=== PATIENT | male | born 1945 | race Caucasian/White ===

== ENCOUNTER 2024-02-18 07:06 | Emergency (ER) | payer OTHER, SELFPAY ==
[2024-02-18 07:07] VITALS: BP 193/70; PULSE 82; RESP 16; TEMP 36.4; O2SAT 98; BMI 37.8
--- NOTE | 2024-02-18 07:18 | EKG12_ITS ---
Test Reason : CP Blood Pressure : / mmHG Vent. Rate : 083 BPM Atrial Rate : 083 BPM P-R Int : 176 ms QRS Dur : 084 ms QT Int : 374 ms P-R-T Axes : 031 -01 043 degrees QTc Int : 439 ms Normal sinus rhythm Low voltage QRS Borderline ECG Confirmed by LAW MONTILLA, JESI ([id number]), video news editor BEVERLY TURPIN ([id number]) on 02/19/2024 9:44:43 AM Referred By: Jose Confirmed By:JESI FOY MD
--- NOTE | 2024-02-18 07:18 | ED.VIS.CHEST ---
HPI History of Present Illness Chief Complaint: Chest Pain Informant: patient and family Narrative Narrative: 79-year-old [place] patient presenting with chest discomfort at about 7 AM that woke him up at 2 AM and has been there ever since. It is substernal, feels sharp, dull, difficult for him to describe it nonpleuritic. He has had a cough for couple weeks occasionally coughing up yellow sputum and occasionally wheezing, has been wheezing worse this morning, he says his shortness of breath coincides with the wheezing and all of that is worse when he coughs not necessarily when he walks including the chest discomfort which is nonexertional. When he went to bed he did not have the chest discomfort. He does not have a history of heart problems or COPD/asthma that he knows of. He has had leg swelling for the last couple months which is new for him, he [facility] but has not been put on any specific medications for this yet, but they cut his amlodipine in half from 10 to 5mg daily. Already takes medications for blood pressure, hyperlipidemia, thyroid, and he has a history of prostate cancer. [facility] Medical History (Updated 02/18/24 @ 10:[address] Mark Garcia MD) Hyperlipidemia Hypertension Hypothyroidism Prostate cancer Home Medications albuterol sulfate 90 mcg/actuation aerosol inhaler (Ventolin HFA) 1 - 2 puff inhalation Q4H PRN PRN Wheezing ##1 02/18/24 [Rx Last Taken Unknown] alprazolam 0.25 mg tablet 0.25 mg PO DAILY PRN anxiety 02/18/24 [History Last Taken Unknown] amlodipine 10 mg tablet 5 mg PO DAILY 02/18/24 [History Last Taken 02/17/24] benazepril 10 mg tablet 10 mg PO DAILY 02/18/24 [History Last Taken 02/17/24] calcium citrate 200 mg (950 mg) tablet 200 mg PO BID 02/18/24 [History Last Taken 02/17/24] finasteride 5 mg tablet 5 mg PO DAILY 02/18/24 [History Last Taken 02/17/24] furosemide 40 mg tablet (Lasix) 40 mg PO DAILY #5 tabs 02/18/24 [Rx Last Taken Unknown] levofloxacin 500 mg tablet 500 mg PO DAILY #7 tabs 02/18/24 [Rx Last Taken Unknown] levothyroxine 125 mcg tablet (Euthyrox) 125 mcg PO DAILY 02/18/24 [History Last Taken 02/18/24] pravastatin 80 mg tablet 80 mg PO QHS 02/18/24 [History Last Taken 02/17/24] tamsulosin 0.4 mg capsule (Flomax) 0.4 mg PO DAILY 02/18/24 [History Last Taken 02/17/24] Allergy/AdvReac Type Severity Reaction Status Date / Time No Known Allergies Allergy Verified 02/18/24 07:07 Social History (Updated 02/18/24 @ 07:[address] Mark Garcia MD) Smoking Status: Never smoker ROS ROS ED Constitutional Constitutional ED: Denies chills or fever(s) Eyes Eyes: Denies change in vision or diplopia ENT ENT ED: Denies rhinorrhea or sore throat Cardiovascular Cardiovascular: Reports chest pain and leg edema; Denies orthopnea, palpitations, radiating jaw, neck or arm pain or syncope Respiratory/Chest Respiratory/Chest: Reports cough, dyspnea, sputum and wheezing; Denies hemoptysis or orthopnea Gastrointestinal Gastrointestinal: Denies abdominal pain, diarrhea, nausea or vomiting Genitourinary Genitourinary ED: Denies dysuria or hematuria Musculoskeletal Musculoskeletal: Denies back pain or neck pain Integumentary Denies abscess or rash Neurologic Neurologic: Denies headache(s), paresthesias or weakness Psychiatric Psychiatric: Denies anxiety or suicidal thoughts EXAM Physical Exam Const Vital Signs: 02/18/24 07:07 02/18/24 07:16 02/18/24 07:26 Temperature 97.6 F L Temperature Source Temporal Pulse Rate 82 Respiratory Rate 16 Respiratory Effort Short of Breath Blood Pressure 193/70 H Blood Pressure Mean 111 Pulse Ox 98 98 Oxygen Delivery Method Room Air Room Air 02/18/24 07:26 02/18/24 08:09 02/18/24 09:00 Temperature 97.2 F L Temperature Source Oral Pulse Rate 79 79 80 Respiratory Rate 18 16 18 Respiratory Effort Blood Pressure 153/69 H 154/80 H Blood Pressure Mean 97 104 Pulse Ox 94 93 Oxygen Delivery Method Room Air Room Air 02/18/24 10:01 Temperature 98.1 F Temperature Source Temporal Pulse Rate 76 Respiratory Rate 15 Respiratory Effort Blood Pressure 155/74 H Blood Pressure Mean 101 Pulse Ox 95 Oxygen Delivery Method Room Air Positive well nourished, well developed and obese General Appearance ED: well developed and NAD Nutritional Appearance: obese HEENT Reports moist mucous membranes normocephalic and atraumatic Eyes PERRL and EOMs intact bilaterally Neck full ROM, supple and no JVD Chest Wall inspection of chest normal and palpation of chest normal Resp normal respiratory effort Resp Narrative: Diffuse expiratory wheezing and prolonged expiratory phase no respiratory distress. Speaking in full sentences. Able to ambulate to and from the bathroom just prior to me entering the room for examination without respiratory distress or difficulty. Cardio regular rate, regular rhythm and no murmurs GI non-tender and non-distended Auscultation: normoactive bowel sounds Palpation: soft Back/Spine no CVA tenderness General Back: other FROM Extremity normal to inspection General Extremety ED: Yes edema; Negative for pulses abnormal or tenderness General Extremity: edema bilateral lower extremity Details: moderate; Negative for pulses abnormal Neuro oriented x3, CN's II-XII intact bilaterally and no sensory deficits noted Sensorium / Orientation: awake and alert Motor Exam: strength 5/5 throughout Psych mental status grossly normal Skin no rashes or lesions noted and no wounds Heart Score History: Moderately Suspicious ECG: Normal Age: >/= 65 years Risk Factors: 1 or 2 Risk Factors Troponin: </= Normal Limit Score: 4 MDM MDM MDM Narrative Medical decision making narrative: Patient was given an albuterol treatment while we ran workup, his wheezing and chest discomfort resolved as a result and he felt much better. Given the swelling around a BNP which is well within normal limits, his initial troponin measurement is 6 and his second troponin measurement 2-3 hours later is 6, for a delta of 0. His EKG is normal, 2 view chest x-ray my interpretation normal radiology in agreement, no pneumonia. He states he has been sick for 2-3 weeks with this cough. While it is likely that this is a viral wheezy bronchitis, he is 79 and I think reasonable to prescribe a broad-spectrum antibiotic to cover for atypicals. Also given prescription for albuterol inhaler and 5 days of once daily Lasix for the swelling in his legs. [facility], he may need to continue having his medications changed such as discontinuation of his amlodipine but since his blood pressure is elevated he may need a replacement medication. All questions answered for multiple family members in the room and they are comfortable with that overall plan, but at this time I think it is reasonable to discharge him home having had ruled out acute coronary syndrome today. Lab Data Attestation: I reviewed the patient's lab results. Labs: Laboratory Results - last 24 hr 02/18/24 02/18/24 07:17 09:45 WBC 9.2 RBC 4.32 L Hgb 12.5 L Hct 38.5 L MCV 89.1 MCH 28.9 MCHC 32.5 RDW Std Deviation 44.1 H RDW Coeff of Dahlia 13.5 Plt Count 324 MPV 9.8 Immature Gran % (Auto) 1.000 H Neut % (Auto) 64.7 Lymph % (Auto) 23.0 [place]ala % (Auto) 9.6 Eos % (Auto) 1.3 Baso % (Auto) 0.4 Absolute Neuts (auto) 6.0 Absolute Lymphs (auto) 2.12 Nucleated RBC % 0 Sodium 136 Potassium 3.7 Chloride 104 Carbon Dioxide 27.0 Anion Gap 5 BUN 17 Creatinine 0.76 Estim Creat Clear Calc 82.51 Est GFR (MDRD) Af Amer 128 Est GFR (MDRD) Non-Af 106 BUN/Creatinine Ratio 22.4 H Glucose 116 H Calcium 9.0 Troponin I High Sens 6 6 B-Natriuretic Peptide 41.9 Radiography Diagnostic Testing: Clinical Impression(s) from Imaging Studies Chest X-Ray 02/18/24 07:52 IMPRESSION: No acute cardiopulmonary disease. Electronically Signed: Yonathan Skelton MD at 9:05 EDT Reading Location ID and State: [address] [place] [address] Tel , Service support , Rhythm Strip Rhythm Strip: Sinus Rhythm Rate: 83 Ectopy: None EKG Initial EKG: Attestation: I personally reviewed and interpreted this EKG as follows: Interpretation: Sinus Rhythm and No Acute Injury Pattern Comments: nml EKG Prior EKG tracings: not available for review Prior: No Prior Discharge Plan Triage Chief Complaint: Chest Pain ED Provider: Mark Garcia Dx/Rx/DC Orders Clinical Impression: Bilateral leg edema, Acute wheezy bronchitis, Chest pain, unspecified Instructions: Acute Bronchitis, ED Peripheral Edema, Unilateral Prescriptions: New albuterol sulfate [Ventolin HFA] 90 mcg/actuation HFA aerosol inhaler 1 - 2 puff inhalation Q4H PRN PRN (Reason: Wheezing) Qty: 1 0RF furosemide [Lasix] 40 mg tablet 40 mg PO DAILY Qty: 5 0RF levofloxacin 500 mg tablet 500 mg PO DAILY Qty: 7 0RF No Action tamsulosin [Flomax] 0.4 mg capsule 0.4 mg PO DAILY levothyroxine [Euthyrox] 125 mcg tablet 125 mcg PO DAILY finasteride 5 mg tablet 5 mg PO DAILY pravastatin 80 mg tablet 80 mg PO QHS benazepril 10 mg tablet 10 mg PO DAILY calcium citrate 200 mg (950 mg) tablet 200 mg PO BID amlodipine 10 mg tablet 5 mg PO DAILY alprazolam 0.25 mg tablet 0.25 mg PO DAILY PRN (Reason: anxiety) Rx Instructions: and [address] or radiation [facility]Primary [facility] Provider] - (This coming week call for appointment if you do not already have 1) Disposition Disposition: Home, Self Care
[2024-02-18 07:24] LABS: Absolute Lymphocyte Count 2.12 X10^3/uL (0.83-4.51); Basophil# 0.04 X10^3/uL; Basophil% 0.4 % (0-1); Eosinophil# 0.12 X10^3/uL; Eosinophils% 1.3 % (0-5); Hematocrit 38.5 % (40-54); Hemoglobin 12.5 g/dL (13.0-16.5); Lymphocyte # 2.12 X10^3/ul (0.83-4.51); Mean Corp Hgb Conc 32.5 g/dL (32-36); Mean Corpuscular Hgb 28.9 pg (27.0-32.0); Mean Corpuscular Volume 89.1 fL (80-94); Mean Platelet Vol. 9.8 fl (6.2-12.0); Monocyte# 0.88 X10^3/uL; Monocyte% 9.6 % (0-10); NRBC Flagged by Analyzer 0 % (0-5); Neutrophil # 5.95 X10^3/uL (2.7-7.7); Neutrophil % 64.7 % (47-70); Platelet Count 324 K/mm3 (150-450); RBC Distribution Width CV 13.5 % (11.6-14.6); RBC Distribution Width SD 44.1 fl (35.1-43.9); Red Blood Count 4.32 M/mm3 (4.6-6.2); White Blood Count 9.2 K/mm3 (4.4-11.0)
[2024-02-18] MEDS: Albuterol 2.5 MG/3 ML VIAL.NEB. INHALATION (07:25)
[2024-02-18 07:26] VITALS: PULSE 79; RESP 18; O2SAT 98
[2024-02-18 07:47] LABS: Anion Gap 5 (5-15); BUN 17 mg/dL (7-18); BUN/Creat Ratio 22.4 RATIO (10-20); Chloride 104 mmol/L (98-107); Creatinine, Serum 0.76 mg/dL (0.70-1.30); EST Glomerular Filtration Rate 106 mL/min (>60); Est Glom Filt Rate - Afr Amer 128 mL/min (>60); Estimated Creatinine Clearance 82.51 ml/min; Glucose 116 mg/dL (74-106); Potassium 3.7 mmol/L (3.5-5.1); Sodium Level 136 mmol/L (136-145); Troponin-I HS (w/2H Reflex) 6 pg/mL (3.0-78.0)
--- NOTE | 2024-02-18 07:52 | RAD_ITS ---
EXAM: XR CHEST, 2 VIEWS CLINICAL INDICATION: chest pain, cough, sob TECHNIQUE: Frontal and lateral views of the chest. COMPARISON: No relevant prior studies available. FINDINGS: LUNGS AND PLEURAL SPACES: Normal. No consolidation or edema. No pneumothorax. No effusion. HEART: Normal heart size. MEDIASTINUM: No mediastinal or hilar mass. BONES/JOINTS: No acute abnormality. RAD/Chest PA and Lateral IMPRESSION: No acute cardiopulmonary disease. Electronically Signed: Yonathan Skelton MD at 9:05 EDT ,
[2024-02-18 07:57] LABS: BNP,B-Type NATRIURETIC PEPTIDE 41.9 pg/mL (0-100)
[2024-02-18 08:09] VITALS: BP 153/69; PULSE 79; RESP 16; TEMP 36.2; O2SAT 94
[2024-02-18 09:00] VITALS: BP 154/80; PULSE 80; RESP 18; O2SAT 93
[2024-02-18 09:21] LABS: Reflex Troponin-HS? (from REC) Y
[2024-02-18 10:01] VITALS: BP 155/74; PULSE 76; RESP 15; TEMP 36.7; O2SAT 95
[2024-02-18 10:12] LABS: Troponin-I HS 6 pg/mL (3.0-78.0)
[2024-02-18 10:31] VITALS: BP 112/90; PULSE 72; RESP 20; TEMP 36.1; O2SAT 98
== END 2024-02-18 10:32 | disposition home or self-care (01) ==
PROVIDERS: Emergency Provider Emergency Medicine; Visit Provider Emergency Medicine
DX: R07.9 Chest pain, unspecified (principal); J20.9 Acute bronchitis, unspecified; E78.5 Hyperlipidemia, unspecified; R60.0 Localized edema; I10 Essential (primary) hypertension; Z79.899 Other long term (current) drug therapy; Z85.46 Personal history of malignant neoplasm of prostate; E03.9 Hypothyroidism, unspecified; R06.2 Wheezing
CPT/HCPCS: 71046; 80048; 83880; 84484; 85025; 93005; 94640; 99284; A4216

== ENCOUNTER 2024-11-22 11:01 | Emergency (ER) | payer OTHER, SELFPAY ==
[2024-11-22 11:02] VITALS: BP 148/74; PULSE 64; RESP 18; TEMP 36.8; O2SAT 97; BMI 36.0
--- NOTE | 2024-11-22 11:33 | CT_ITS ---
PROCEDURE: ABDOMEN/PELVIS WITH CONTRAST REASON FOR EXAM: Left lower quadrant pain. TECHNIQUE: CT of the abdomen and pelvis with contrast, with sagittal and coronal reconstructed images. COMPARISON: None. FINDINGS: Lung bases: Clear Liver: Diffuse fatty infiltration of the liver is noted. No focal process is seen.. Gallbladder: Unremarkable. Spleen: Unremarkable. Pancreas: Unremarkable. Adrenals: Unremarkable. Kidneys: Unremarkable. No renal calculus is seen. No evidence of hydronephrosis. Bladder: Incompletely filled urinary bladder shows no abnormality.. Reproductive Organs: Metallic prostate seeds are seen.. Bowel: Moderate sigmoid diverticulosis is noted, mild at the adjacent descending colon. No specific findings of diverticulitis are noted. No mesenteric fat edema, free or loculated fluid collection, or pneumoperitoneum is seen. Appendix: Normal. Lymph nodes: No suspicious lymph node enlargement. Vasculature: [id number] aortic calcifications are seen; no evidence of abdominal aortic aneurysm. Mild coronary artery calcification is seen. Peritoneum / Retroperitoneum: No ascites. No free air. Bones: No acute process is seen. Prominent degenerative changes of the spine and sacroiliac joints are noted. Bilateral hip joint degenerative changes are also seen.. CT/Abdomen/Pelvis WITH Contrast IMPRESSION: 1. Moderate sigmoid diverticulosis. No specific findings of diverticulitis are noted. 2. No acute process is appreciated. One or more dose reduction techniques were used (e.g., Automated exposure contr ol, adjustment of the mA and/or kV according to patient size, use of iterative reconstruction technique). Reading Location: [id number]
--- NOTE | 2024-11-22 11:34 | ED.VIS.GI ---
HPI HPI - GI History of Present Illness Chief Complaint: Abd Pain Narrative Narrative: 79-year-old male past medical history of previous diverticulitis 20 to 30 years ago presents with left lower quadrant abdominal pain that has had over the last 3 weeks. He states it was more intermittent at first, but has become more constant. 3 in the area where his belt takes into his abdominal wall. He denies any fevers or chills, no nausea or vomiting, no diarrhea. Last normal bowel movement was today/this morning. He denies any dysuria or hematuria. Pain is somewhat exacerbated by movement and sitting up, relieved by nothing. He states that [facility] not have [facility] again. [facility] Medical History Prostate cancer Hypothyroidism Hyperlipidemia Hypertension Home Medications ?Medication ?Instructions ?Recorded ?Last Taken ?Type albuterol sulfate 90 mcg/actuation 1 - 2 puff inhalation Q4H PRN PRN 02/18/24 Unknown Rx aerosol inhaler (Ventolin HFA) Wheezing ##1 alprazolam 0.25 mg tablet 0.25 mg PO DAILY PRN anxiety 02/18/24 Unknown History amlodipine 10 mg tablet 5 mg PO DAILY 02/18/24 02/17/24 History benazepril 10 mg tablet 10 mg PO DAILY 02/18/24 02/17/24 History calcium citrate 200 mg PO BID 02/18/24 02/17/24 History finasteride 5 mg tablet 5 mg PO DAILY 02/18/24 02/17/24 History furosemide 40 mg tablet (Lasix) 40 mg PO DAILY #5 tabs 02/18/24 Unknown Rx levofloxacin 500 mg tablet 500 mg PO DAILY #7 tabs 02/18/24 Unknown Rx levothyroxine 125 mcg tablet 125 mcg PO DAILY 02/18/24 02/18/24 History (Euthyrox) pravastatin 80 mg tablet 80 mg PO QHS 02/18/24 02/17/24 History tamsulosin 0.4 mg capsule (Flomax) 0.4 mg PO DAILY 02/18/24 02/17/24 History Allergy/AdvReac Type Severity Reaction Status Date / Time No Known Allergies Allergy Verified 11/22/24 11:02 Social History Smoking Status: Never smoker ROS ROS ED ROS Narrative Constitutional: No fever, no chills. Cardiovascular: No chest pain. No palpitations. No pedal edema. Respiratory: No cough, no shortness of breath. Abdominal: Left lower quadrant abdominal pain x 3 weeks. No nausea. No vomiting. No diarrhea. Genitourinary: No dysuria. No hematuria. Musculoskeletal: No myalgias. No arthralgias. Neurologic: No headaches. No dizziness. No lightheadedness. Skin: No rash. No change in color. EXAM Physical Exam Narrative Exam Narrative: Afebrile. Vital signs noted. Nontoxic-appearing. HEENT exam grossly unremarkable with PERRL, EOMI. Neck soft and supple. No meningismus. Cardiovascular examination regular rate and rhythm. Lungs clear to auscultation bilaterally. Abdomen soft with mild tenderness palpation left lower quadrant without guarding or rebound. Positive bowel sounds. Positive pain with half sit up. Const Vital Signs: 11/22/24 11:02 11/22/24 13:01 Temperature 98.2 F 98.9 F Temperature Source Oral Oral Pulse Rate 64 68 Respiratory Rate 18 18 Blood Pressure 148/74 H 134/78 H Blood Pressure Mean 98 96 Pulse Ox 97 98 Oxygen Delivery Method Room Air Room Air MDM MDM MDM Narrative Medical decision making narrative: Differential diagnosis includes but not limited to diverticulitis versus abdominal wall strain/muscular pain versus bowel obstruction. I have very low suspicion for bowel obstruction based on the history and physical because it does not support this. Additionally, I have low suspicion for diverticulitis as well based on his history and physical. Comprehensive workup was pursued. I reviewed his laboratory work and he has normal white count of 9.6, hemoglobin normal at 14.1, platelet count normal at 328. Sodium slightly low 135 which I think is nonspecific, normal potassium 3.9, BUN of 14 and creatinine 0.82. LFTs are grossly unremarkable. Urinalysis is negative for infection. I do not feel antibiotics are indicated. I reviewed the radiology report of the CT of the abdomen pelvis which shows diverticulosis but no evidence of acute diverticulitis. At this point in time, repeat examination shows him resting comfortably. I do feel that he probably has more abdominal wall pain versus strain. I feel he can be discharged to follow-up with his primary care provider. Return instructions to the emergency department were reviewed. Disposition is discharged home in stable condition. History & Record Review Discussion w/independent historian: Patient Lab Data Attestation: I reviewed the patient's lab results. Labs: Laboratory Results - last 24 hr 11/22/24 11/22/24 11:15 12:00 WBC 9.6 RBC 4.78 Hgb 14.1 Hct 41.9 MCV 87.7 MCH 29.5 MCHC 33.7 RDW Std Deviation 45.1 H RDW Coeff of Dahlia 14.0 Plt Count 328 MPV 10.4 Immature Gran % (Auto) 0.800 Neut % (Auto) 65.7 Lymph % (Auto) 22.8 [place] % (Auto) 9.2 Eos % (Auto) 1.1 Baso % (Auto) 0.4 Absolute Neuts (auto) 6.3 Absolute Lymphs (auto) 2.19 Nucleated RBC % 0 Sodium 135 L Potassium 3.9 Chloride 100 Carbon Dioxide 30.0 Anion Gap 5 BUN 14 Creatinine 0.82 Estim Creat Clear Calc 78.56 Est GFR (MDRD) Af Amer 116 Est GFR (MDRD) Non-Af 96 BUN/Creatinine Ratio 17.0 Glucose 105 Calcium 9.0 Total Bilirubin 0.40 AST 19 ALT 33 Alkaline Phosphatase 81 Total Protein 7.9 Albumin 4.0 Globulin 3.9 Albumin/Globulin Ratio 1.0 Urine Color Yellow Urine Clarity Clear Urine pH 7.0 Ur Specific [place] 1.005 Urine Protein Negative Urine Glucose (UA) Normal Urine Ketones Negative Urine Occult Blood Negative Urine Nitrite Negative Urine Bilirubin Negative Urine Urobilinogen Normal Ur Leukocyte Esterase Negative Urine RBC 0 SEEN Urine WBC 0 SEEN Ur Squamous Epith Cells 0 SEEN Urine Bacteria 0 SEEN Urine Mucus 0 SEEN Radiography Diagnostic Testing: Clinical Impression(s) from Imaging Studies Abdomen/Pelvis CT 11/22/24 11:33 IMPRESSION: 1. Moderate sigmoid diverticulosis. No specific findings of diverticulitis are noted. 2. No acute process is appreciated. One or more dose reduction techniques were used (e.g., Automated exposure control, adjustment of the mA and/or kV according to patient size, use of iterative reconstruction technique). Reading Location: [address] Discharge Plan Triage Chief Complaint: Abd Pain ED Provider: Shreyas Martinez Dx/Rx/DC Orders Clinical Impression: Abdominal pain, acute, left lower quadrant, Abdominal wall pain Instructions: ED Abdominal Pain Unkn Cause Male... Prescriptions: No Action tamsulosin [Flomax] 0.4 mg capsule 0.4 mg PO DAILY levothyroxine [Euthyrox] 125 mcg tablet 125 mcg PO DAILY finasteride 5 mg tablet 5 mg PO DAILY pravastatin 80 mg tablet 80 mg PO QHS benazepril 10 mg tablet 10 mg PO DAILY calcium citrate 200 mg (950 mg) tablet 200 mg PO BID amlodipine 10 mg tablet 5 mg PO DAILY alprazolam 0.25 mg tablet 0.25 mg PO DAILY PRN (Reason: anxiety) Rx Instructions: and [address] or radiation albuterol sulfate [Ventolin HFA] 90 mcg/actuation HFA aerosol inhaler 1 - 2 puff inhalation Q4H PRN PRN (Reason: Wheezing) Qty: 1 0RF furosemide [Lasix] 40 mg tablet 40 mg PO DAILY Qty: 5 0RF levofloxacin 500 mg tablet 500 mg PO DAILY Qty: 7 0RF [facility] Provider[facility] - 1 Week if not improving Activity Restrictions/Additional Instructions: Follow-up with your primary care provider. Return with fever, increased pain, new or worsening symptoms. Print Language: Frisian Disposition Disposition: Home, Self Care
[2024-11-22 11:48] LABS: Absolute Lymphocyte Count 2.19 X10^3/uL (0.83-4.51); Absolute Neutrophil Count 6.3 X10^3/uL (2.0-7.7); Basophil# 0.04 X10^3/uL; Basophil% 0.4 % (0-1); Eosinophil# 0.11 X10^3/uL; Eosinophils% 1.1 % (0-5); Hematocrit 41.9 % (40-54); Hemoglobin 14.1 g/dL (13.0-16.5); Lymphocyte # 2.19 X10^3/ul (0.83-4.51); Lymphocyte % 22.8 % (19-41); Mean Corp Hgb Conc 33.7 g/dL (32-36); Mean Corpuscular Hgb 29.5 pg (27.0-32.0); Mean Corpuscular Volume 87.7 fL (80-94); Mean Platelet Vol. 10.4 fl (6.2-12.0); Monocyte# 0.88 X10^3/uL; Monocyte% 9.2 % (0-10); NRBC Flagged by Analyzer 0 % (0-5); Neutrophil # 6.29 X10^3/uL (2.7-7.7); Neutrophil % 65.7 % (47-70); Platelet Count 328 K/mm3 (150-450); RBC Distribution Width SD 45.1 fl (35.1-43.9); Red Blood Count 4.78 M/mm3 (4.6-6.2); White Blood Count 9.6 K/mm3 (4.4-11.0)
[2024-11-22 12:11] LABS: Bacteria 0 SEEN /hpf (None Seen); Mucous, Urine 0 SEEN /hpf (<or=2+); Red Blood Cells-Urine 0 SEEN /hpf (0-5); Squamous Epithelial Cells - UA 0 SEEN /hpf (0-5); White Blood Cells 0 SEEN /hpf (0-5)
[2024-11-22 12:13] LABS: Color, Urine Yellow (Yellow); Glucose, Dipstick Normal (Normal); Ketone-Dipstick Negative (Negative); Leukocyte Esterase-Dipstick Negative /ul (Negative); Nitrite-Dipstick Negative (Negative); Occult Blood-Urine Negative /ul (Negative); Protein-Dipstick Negative (Negative); Specific Gravity, Urine 1.005 (1.002-1.030); Urine Bilirubin Dipstick Negative (Negative); Urine Clarity Clear (Clear); Urine Urobilinogen Normal (Normal)
[2024-11-22 12:14] LABS: AST(SGOT) 19 U/L (15-37); Alanine Aminotransfer ALT/SGPT 33 U/L (16-61); Alkaline Phosphatase 81 U/L (45-117); Anion Gap 5 (5-15); BUN 14 mg/dL (7-18); Chloride 100 mmol/L (98-107); Creatinine, Serum 0.82 mg/dL (0.70-1.30); EST Glomerular Filtration Rate 96 mL/min (>60); Est Glom Filt Rate - Afr Amer 116 mL/min (>60); Estimated Creatinine Clearance 78.56 ml/min; Globulin 3.9 g/dL (2.2-4.2); Glucose 105 mg/dL (74-106); Potassium 3.9 mmol/L (3.5-5.1); Protein, Total 7.9 g/dL (6.4-8.2); Sodium Level 135 mmol/L (136-145)
[2024-11-22 13:01] VITALS: BP 134/78; PULSE 68; RESP 18; TEMP 37.2; O2SAT 98
== END 2024-11-22 14:38 | disposition home or self-care (01) ==
PROVIDERS: Emergency Provider Emergency Medicine; Visit Provider Emergency Medicine
DX: R10.32 Left lower quadrant pain (principal); E78.5 Hyperlipidemia, unspecified; I10 Essential (primary) hypertension; Z85.46 Personal history of malignant neoplasm of prostate; E03.9 Hypothyroidism, unspecified; Z79.899 Other long term (current) drug therapy; Z79.890 Hormone replacement therapy
CPT/HCPCS: 74177; 80053; 81001; 85025; 99283; Q9967; A4216